=== PATIENT | female | born 1970 | race Two or more races ===

== ENCOUNTER 2025-03-17 08:00 | Outpatient (CLI) | payer OTHER ==
[~2025-03-17] VITALS: Ht 152.4 cm; Wt 84.4 kg
[2025-03-17] MEDS ORDERED: HUMALOG100 UNIT/2 (14:27)
[2025-03-17] MEDS ORDERED: LANTUS SOL100 UNIT/1 (14:28)
[2025-03-17] MEDS ORDERED: ZETIA10 MG PO (14:29)
[2025-03-17] MEDS ORDERED: ATENOLOL-CHLOR1 EACH PO (14:29)
[2025-03-17] MEDS ORDERED: LOSARTAN POTASS25 MG PO (14:29)
[2025-03-17] MEDS ORDERED: CRESTOR40 MG PO (14:30)
[2025-03-17] MEDS ORDERED: TRICOR145 MG PO (14:30)
[2025-03-17] MEDS ORDERED: RAYALDEE30 MCG PO (14:31)
[2025-03-17] MEDS ORDERED: [UNRECOGNIZED DRUG - OTHER] (14:31)
[2025-03-17] MEDS ORDERED: DISCOVISC DISP S1 ML IO (14:32)
[2025-03-17] MEDS ORDERED: TRULICITY4.5 MG/0.5 (14:32)
[2025-03-17 14:37] VITALS: BP 118/82
== END 2025-03-17 08:01 | disposition home or self-care (01) ==
LOC: EKG 08:00 → SURH 03-24 10:15 → EDSTATUS 03-24 12:45
PROVIDERS: ATTEND Surgery
DX: B20 Human immunodeficiency virus [HIV] disease (principal); K62.5 Hemorrhage of anus and rectum; D12.4 Benign neoplasm of descending colon; D37.4 Neoplasm of uncertain behavior of colon; R59.0 Localized enlarged lymph nodes; I10 Essential (primary) hypertension